=== PATIENT | female | born 1960 | race Caucasian/White ===

== ENCOUNTER 2022-01-21 08:12 | Day surgery (SDC) | payer BC ==
[2022-01-20 09:58] VITALS: BMI 34.2
[2022-01-21] MEDS ORDERED: LIDOCAINE HCL/PF 2% SDV 5ML VIAL ONE (08:34)
[2022-01-21] MEDS ORDERED: PROPOFOL 80 ML ONE (08:35)
[2022-01-21 10:16] VITALS: TEMP 97
[2022-01-21 10:30] VITALS: BP 120/70; PULSE 79; RESP 20
== END 2022-01-21 10:29 | disposition home or self-care (01) ==
LOC: FASU-ENDO 08:12
PROVIDERS: ATTEND Internal Medicine Gastroenterology
PROC: 0DBL8ZX Excision of Transverse Colon, Via Natural or Artificial Opening Endoscopic, Diagnostic (ICD-10-PCS; principal; 2022-01-21 09:29)
DX: Z12.11 Encounter for screening for malignant neoplasm of colon (principal); D12.3 Benign neoplasm of transverse colon; K64.1 Second degree hemorrhoids; K57.30 Diverticulosis of large intestine without perforation or abscess without bleeding
CPT/HCPCS: 88305-TC

== ENCOUNTER 2024-04-12 07:56 | Day surgery (SDC) | payer BC ==
[2024-04-05 11:28] VITALS: BMI 33.2
[2024-04-12 08:26] VITALS: RESP 16
[2024-04-12 08:54] VITALS: TEMP 97.1
[2024-04-12 09:25] VITALS: BP 110/74; PULSE 83
== END 2024-04-12 09:33 | disposition home or self-care (01) ==
LOC: FASU-ENDO 07:56
PROVIDERS: ATTEND Internal Medicine Gastroenterology
PROC: 0DB68ZX Excision of Stomach, Via Natural or Artificial Opening Endoscopic, Diagnostic (ICD-10-PCS; 2024-04-12)
PROC: 0DB48ZX Excision of Esophagogastric Junction, Via Natural or Artificial Opening Endoscopic, Diagnostic (ICD-10-PCS; 2024-04-12)
PROC: 0DB98ZX Excision of Duodenum, Via Natural or Artificial Opening Endoscopic, Diagnostic (ICD-10-PCS; principal; 2024-04-12 08:36)
DX: Z13.810 Encounter for screening for upper gastrointestinal disorder (principal); K29.50 Unspecified chronic gastritis without bleeding; K20.90 Esophagitis, unspecified without bleeding
CPT/HCPCS: 82962; 88305-TC; 88342-TC